=== PATIENT | male | born 1955 | race Caucasian/White ===

== ENCOUNTER → 2017-07-04 | Outpatient (CLI) | payer MEDICAID, OTHER ==
[~2017-07-04] MED LIST: FURO10S TUBE; GADODIAMIDE PF 287 MG/ML 20 ML VIAL (for RAD MRI) IVCONTRAST ONE; LORA1TAB PO; METO50CR PO; ONDA4TAB7 PO; PRED1TAB PO
--- NOTE | 2017-07-04 09:47 | RADRPT ---
EXAM DATE/TIME: 07/04/2017 08:48 [place] COMPARISON: No previous studies available for comparison. INDICATIONS : Metastatic disease. SRS protocol. CONTRAST: 20 cc Omniscan (gadodiamide) IV MEDICAL HISTORY : Hypertension. Melanoma. SURGICAL HISTORY : Appendectomy. Colon resection. ENCOUNTER: Subsequent ACUITY: 3 months PAIN SCORE: 0/10 LOCATION: head TECHNIQUE: Multiplanar, multisequence MRI of the brain was performed both prior to and following the administrat ion of paramagnetic contrast. FINDINGS: CEREBRUM: The ventricles are normal for age. No evidence of midline shift, mass lesion, hemorrhage or acute in farction. No extraaxial fluid collections are seen. The pituitary gland and suprasellar cistern are normal in configuration. WHITE MATTER: Scattered foci of bright T2 signal abnormalities are seen in the white matter. POSTERIOR FOSSA: The cerebellum and brainstem are intact. The 4th ventricle is midline. The cerebellopontine angle is unremarkable. The cerebellar tonsils are normal in position. DIFFUSION IMAGING: No focal areas of restricted diffusion are seen. No evidence of acute infarction. EXTRACRANIAL: The visualized portions of the orbits and paranasal sinuses are unremarkable. POST-CONTRAST: Ring-enhancing lesion is seen within the right posterior parietal lobe with some adjacent vasogenic e gilberto. This measures 14 x 8 mm. Slightly more inferiorly is a small area of vasogenic edema versus whi te matter changes but no definite enhancement. Focal punctate enhancement measuring 2-3 mm is seen wi thin the parafalcine right parietal lobe and 2 within the left left parietal lobe. A third area of pu nctate focus is seen within the right parietal lobe posterior and laterally. CONCLUSION: Multifocal enhancing lesions the largest in the right posterior parietal lobe measuring 14 mm.. Jose L Ohara MD on July 04, 2017 at 9:35 Board Certified Radiologist. This report was verified electronically.
== END ==
LOC: HRAD 07:15
PROVIDERS: ATTEND Radiology Radiation Oncology
DX: C79.31 Secondary malignant neoplasm of brain (principal)
CPT/HCPCS: 70553; A9579